=== PATIENT | female | born 1990 | race Caucasian/White ===

== ENCOUNTER 2017-01-30 08:43 | Emergency (ER) | payer MEDICAID ==
[~2017-01-30 08:43] MED LIST: AMBIEN5 MG PO; FERROUS SULFAT325 MG PO; PRENATAL COMPLE1 TAB PO
[2017-01-30 09:25] LABS: BASOPHILS 0.6 % (0-2); HEMATOCRIT 36.1 % (36.0-48.0); HEMOGLOBIN 12.1 g/dL (12-16); IMMATURE GRANULOCYTES 0.2 % (0-5); LYMPHOCYTES 31.8 % (15-50); MCH 29.4 pg (26.0-34.0); MCHC 33.5 g/dL (31.0-37.0); MCV 87.6 fL (80.0-100.0); MEAN PLATELET VOLUME 10.1 fL (7.4-10.4); MONOCYTES 5.8 % (2-11); NEUTROPHILS 58.6 % (40-80); PLATELET COUNT 232 10x3/uL (130-400); RBC 4.12 10x6/uL (4.00-5.40); RDW 13.2 % (11.5-14.5); WBC 5.3 10x3/uL (4.8-10.8)
[2017-01-30 10:04] LABS: APPEARANCE CLEAR (CLEAR); BILIRUBIN NEGATIVE (NEGATIVE); COLOR YELLOW (YELLOW); GLUCOSE NEGATIVE (NEGATIVE); KETONE NEGATIVE (NEGATIVE); LEUKOCYTE ESTERASE 2+ (NEGATIVE); NITRITE NEGATIVE (NEGATIVE); PROTEIN NEGATIVE (NEGATIVE); UROBILINOGEN NORMAL (NORMAL)
[2017-01-30 10:05] LABS: BACTERIA FEW /hpf (NONE SEEN); EPITHELIAL CELLS 0-5 /hpf (0-5); RED CELLS - URINE RARE /hpf (0-5); WHITE CELLS - URINE 0-5 /hpf (0-5)
== END 2017-01-30 12:00 | disposition home or self-care (01) ==
LOC: D.ER 08:43
PROVIDERS: Emergency Medicine
DX: R10.9 Unspecified abdominal pain (principal); R10.2 Pelvic and perineal pain

== ENCOUNTER 2017-02-01 08:46 | Emergency (ER) | payer MEDICAID ==
[2017-02-01 09:16] LABS: BASOPHILS 0.5 % (0-2); EOSINOPHILS 1.3 % (0-7); HEMATOCRIT 35.6 % (36.0-48.0); HEMOGLOBIN 12.1 g/dL (12-16); IMMATURE GRANULOCYTES 0.1 % (0-5); LYMPHOCYTES 23.3 % (15-50); MCH 29.9 pg (26.0-34.0); MCV 87.9 fL (80.0-100.0); MEAN PLATELET VOLUME 9.8 fL (7.4-10.4); MONOCYTES 5.4 % (2-11); NEUTROPHILS 69.4 % (40-80); PLATELET COUNT 227 10x3/uL (130-400); RBC 4.05 10x6/uL (4.00-5.40); RDW 12.9 % (11.5-14.5)
[2017-02-01 09:17] LABS: WBC 7.8 10x3/uL (4.8-10.8)
[2017-02-01 09:29] LABS: ALKALINE PHOSPHATASE 57 U/L (46-116); ALT (SGPT) 17 U/L (10-68); BILIRUBIN - TOTAL 0.31 mg/dL (0.2-1.3); CALC OSMOLALITY 273 mosm/kg (275-300); CALCIUM 8.3 mg/dL (8.5-10.1); CARBON DIOXIDE 26.9 mmol/L (21.0-32.0); CHLORIDE - SERUM 102 mmol/L (98-107); CREATININE - SERUM 0.7 mg/dL (0.6-1.3); POTASSIUM - SERUM 3.8 mmol/L (3.5-5.1); PROTEIN - SERUM 7.3 g/dL (6.4-8.2); SODIUM 137 mmol/L (136-145); UREA NITROGEN 15 mg/dL (7-18); eGFR NON AFRICAN AMERICAN > 90 mL/min (90-120)
[2017-02-01 09:33] LABS: GLUCOSE 79 mg/dL (74-106)
[2017-02-01 09:34] LABS: APPEARANCE HAZY (CLEAR); COLOR YELLOW (YELLOW)
[2017-02-01 09:35] LABS: BACTERIA FEW /hpf (NONE SEEN); BILIRUBIN NEGATIVE (NEGATIVE); EPITHELIAL CELLS 0-5 /hpf (0-5); GLUCOSE NEGATIVE (NEGATIVE); KETONE NEGATIVE (NEGATIVE); LEUKOCYTE ESTERASE 1+ (NEGATIVE); MUCUS <1+ /lpf (NONE SEEN); NITRITE NEGATIVE (NEGATIVE); PROTEIN NEGATIVE (NEGATIVE); UROBILINOGEN NORMAL (NORMAL); WHITE CELLS - URINE 0-5 /hpf (0-5)
[2017-02-01 09:41] LABS: SPERMATOZOA PRESENT /hpf (NONE SEEN)
[2017-02-01 09:54] LABS: HCG - QUANTITATIVE (MATERNAL) 3292 mIU/mL
== END 2017-02-01 10:50 | disposition home or self-care (01) ==
LOC: D.ER 08:46
PROVIDERS: Family Medicine
DX: O26.891 Other specified pregnancy related conditions, first trimester (principal); Z3A.00 Weeks of gestation of pregnancy not specified; R10.9 Unspecified abdominal pain; F17.200 Nicotine dependence, unspecified, uncomplicated

== ENCOUNTER → 2017-08-20 11:45 | Outpatient (CLI) | payer MEDICAID | END | disposition home or self-care (01) | LOC: D.LDO 11:45 | DX: O26.893 Other specified pregnancy related conditions, third trimester (principal); Z3A.33 33 weeks gestation of pregnancy ==

== ENCOUNTER 2017-09-03 04:06 | Outpatient (CLI) | payer MEDICAID ==
[2017-09-20 16:06] VITALS: BMI 23.2
== END 2017-09-03 06:42 | disposition home or self-care (01) ==
LOC: D.LDO 04:06
DX: O26.893 Other specified pregnancy related conditions, third trimester (principal); Z3A.35 35 weeks gestation of pregnancy; R10.2 Pelvic and perineal pain

== ENCOUNTER → 2017-09-09 05:00 | Outpatient (CLI) | payer MEDICAID ==
[~2017-09-09 05:00] MED LIST changes: +AMBIEN10 MG PO
[2017-09-20 16:06] VITALS: BMI 23.2
== END | disposition home or self-care (01) ==
LOC: D.LDO 05:00
DX: O26.893 Other specified pregnancy related conditions, third trimester (principal); Z3A.36 36 weeks gestation of pregnancy

== ENCOUNTER 2017-09-20 15:30 | Inpatient (IN) | payer MEDICAID ==
[~2017-09-20] VITALS: Ht 152.4 cm; Wt 54.0 kg
--- NOTE | ~2017-09-20 | OP ---
PATIENT NAME: BISHOP BALTAZAR MEDICAL RECORD: [id number] :89 LOCATION:[id number] ADMISSION DATE:09/20/17 SURGEON: CHU GAYTAN MD DATE OF OPERATION: 09/20/2017 DELIVERY NOTE PREDELIVERY DIAGNOSIS: Spontaneous rupture of membranes at term. POSTDELIVERY DIAGNOSIS: Mother delivered at term. PROCEDURE: Vaginal delivery ATTENDING PHYSICIAN: Chu Gaytan MD ANESTHESIA: Continuous lumbar epidural. FINDINGS: Viable male , DEENA presentation, Apgars 9 and 9, weight pending at the time of this dictation. Lacerations none. Placenta spontaneous and intact. ESTIMATED BLOOD LOSS: 300 cc. DISPOSITION: Mother and infant recovered in the room. TRANSINT:[id number] Voice Confirmation ID: [id number] DOCUMENT ID: [id number] CHU GAYTAN MD at 0721 CC: [id number] DICTATION DATE: 09/20/172113 WARP KNIT OPERATOR: 09/20/172157 DIS IN 09/22/17 [id number] [place] [address]
--- NOTE | ~2017-09-20 | DS ---
PATIENT:BISHOP BALTAZAR :89 MEDICAL RECORD: [id number] DISCHARGE SUMMARY ADMISSION DATE: 09/20/17 DISCHARGE DATE: 09/22/17 DATE OF ADMISSION: 09/20/2017 DATE OF DISCHARGE: 09/22/2017 ADMISSION DIAGNOSIS: at term. DISCHARGE DIAGNOSIS: Mother delivered at term. PROCEDURE: Vaginal delivery. ATTENDING PHYSICIAN: Alexa Mcpherson MD HISTORY OF PRESENT ILLNESS: See the H&P in the chart. SUMMARY OF HOSPITALIZATION: The patient was admitted to the hospital in active labor and went on to have a vaginal delivery. At the time of discharge, she is reporting minimal lochia. She has no complaints and a standard precautions have been reviewed with her. Contraception counseling was undertaken before the patient was discharged. Follow up in 6 weeks at [facility]. TRANSINT:[id number] Voice Confirmation ID: [id number] DOCUMENT ID: [id number] ALEXA MCPHERSON MD at 1727 CC: [id number] DICTATION DATE: 10/29/17720 ASSOCIATE DIRECTOR QA: 10/29/17 1327 DIS IN 09/22/17 [facility] [address] [place] [address]
[~2017-09-20 15:30] MED LIST changes: -AMBIEN10 MG PO
[2017-09-20] MEDS ORDERED: AMBIEN10 MG PO (16:00)
[2017-09-20 16:06] VITALS: BP 120/77; Ht 152.4 cm; Wt 54.0 kg
[2017-09-20 16:58] LABS: MCH 28.5 pg (26.0-34.0); MCHC 33.3 g/dL (31.0-37.0); MCV 85.5 fL (80.0-100.0); MEAN PLATELET VOLUME 10.6 fL (7.4-10.4); RBC 3.51 10x6/uL (4.00-5.40); RDW 13.1 % (11.5-14.5); WBC 7.8 10x3/uL (4.8-10.8)
[2017-09-21] VITALS: BP 114/55
[2017-09-21 07:45] VITALS: BP 111/70
[2017-09-21 15:30] VITALS: BP 99/62
[2017-09-21 19:10] VITALS: BP 97/62
[2017-09-21 22:10] VITALS: BP 109/72
[2017-09-22 05:14] LABS: RAPID PLASMA REAGIN Non Reactive (Non Reactive)
[2017-09-22 07:15] VITALS: BP 109/60
== END 2017-09-22 12:20 | disposition home or self-care (01) | DRG 775 ==
LOC: D.LDO 15:30 → D.LD 15:56
PROVIDERS: Obstetrics & Gynecology
PROC: 10E0XZZ Delivery of Products of Conception, External Approach (ICD-10-PCS; principal; 2017-09-20)
DX: O42.92 Full-term premature rupture of membranes, unspecified as to length of time between rupture and onset of labor (principal); Z3A.38 38 weeks gestation of pregnancy; Z37.0 Single live birth

== ENCOUNTER 2018-11-06 07:34 | Emergency (ER) | payer MEDICAID ==
[~2018-11-06] VITALS: Ht 152.4 cm; Wt 39.1 kg
[~2018-11-06 07:34] MED LIST changes: +AMBIEN10 MG PO
[2018-11-06 08:02] VITALS: Ht 152.4 cm; Wt 39.1 kg
[2018-11-06 08:03] LABS: BASOPHILS 0.6 % (0-2); EOSINOPHILS 1.2 % (0-7); HEMATOCRIT 34.9 % (36.0-48.0); HEMOGLOBIN 11.8 g/dL (12-16); IMMATURE GRANULOCYTES 0.3 % (0-5); LYMPHOCYTES 28.2 % (15-50); MCH 28.7 pg (26.0-34.0); MCHC 33.8 g/dL (31.0-37.0); MCV 84.9 fL (80.0-100.0); MEAN PLATELET VOLUME 9.9 fL (7.4-10.4); NEUTROPHILS 57.7 % (40-80); PLATELET COUNT 188 10x3/uL (130-400); RBC 4.11 10x6/uL (4.00-5.40); RDW 13.5 % (11.5-14.5); WBC 3.4 10x3/uL (4.8-10.8)
[2018-11-06 08:13] LABS: APPEARANCE HAZY (CLEAR); BILIRUBIN NEGATIVE (NEGATIVE); COLOR YELLOW (YELLOW); GLUCOSE NEGATIVE (NEGATIVE); KETONE NEGATIVE (NEGATIVE); NITRITE NEGATIVE (NEGATIVE); PROTEIN NEGATIVE (NEGATIVE); SPECIFIC GRAVITY 1.015 (1.005-1.020)
[2018-11-06 08:20] LABS: ALBUMIN 3.7 g/dL (3.4-5.0); ALKALINE PHOSPHATASE 66 U/L (46-116); ALT (SGPT) 20 U/L (10-68); AMYLASE - SERUM 43 U/L (25-115); BILIRUBIN - TOTAL 0.15 mg/dL (0.2-1.3); CALC OSMOLALITY 273 mosm/kg (275-300); CALCIUM 8.4 mg/dL (8.5-10.1); CARBON DIOXIDE 28.4 mmol/L (21.0-32.0); CHLORIDE - SERUM 104 mmol/L (98-107); CREATININE - SERUM 0.8 mg/dL (0.6-1.3); GLUCOSE 88 mg/dL (74-106); LIPASE 168 U/L (73-393); POTASSIUM - SERUM 3.7 mmol/L (3.5-5.1); PROTEIN - SERUM 7.3 g/dL (6.4-8.2); SODIUM 138 mmol/L (136-145); UREA NITROGEN 11 mg/dL (7-18); eGFR NON AFRICAN AMERICAN > 90 mL/min (90-120)
[2018-11-06 09:01] LABS: HCG URINE NEGATIVE (NEGATIVE)
[2018-11-06] MEDS ORDERED: ZOFRAN ODT4 MG/UDTAB PO (13:00)
[2018-11-06] MEDS ORDERED: FLORASTOR250 MG PO (13:00)
[2018-11-06 14:08] VITALS: BP 110/70
== END 2018-11-06 14:08 | disposition home or self-care (01) ==
LOC: D.ER 07:34
PROVIDERS: Family Medicine
DX: R11.2 Nausea with vomiting, unspecified (principal); R19.7 Diarrhea, unspecified

== ENCOUNTER 2019-03-04 16:53 | Emergency (ER) | payer MEDICAID ==
[~2019-03-04] VITALS: Ht 152.4 cm; Wt 43.2 kg
[~2019-03-04 16:53] MED LIST changes: +FLORASTOR250 MG PO; +ZOFRAN ODT4 MG/UDTAB PO
[2019-03-04 18:01] VITALS: Ht 152.4 cm; Wt 43.2 kg
[2019-03-04] MEDS ORDERED: PRENAVITE1 TAB PO (18:06)
[2019-03-04 19:15] LABS: BASOPHILS 0.3 % (0-2); HEMATOCRIT 28.9 % (36.0-48.0); HEMOGLOBIN 10.1 g/dL (12-16); IMMATURE GRANULOCYTES 0.1 % (0-5); LYMPHOCYTES 21.7 % (15-50); MCHC 34.9 g/dL (31.0-37.0); MEAN PLATELET VOLUME 10.2 fL (7.4-10.4); MONOCYTES 7.9 % (2-11); PLATELET COUNT 186 10x3/uL (130-400); RBC 3.48 10x6/uL (4.00-5.40); RDW 13.1 % (11.5-14.5); WBC 7.3 10x3/uL (4.8-10.8)
[2019-03-04 19:38] LABS: ALBUMIN 3.6 g/dL (3.4-5.0); ALKALINE PHOSPHATASE 63 U/L (46-116); ALT (SGPT) 15 U/L (10-68); BILIRUBIN - TOTAL 0.19 mg/dL (0.2-1.3); CALC OSMOLALITY 273 mosm/kg (275-300); CALCIUM 9.4 mg/dL (8.5-10.1); CARBON DIOXIDE 28.2 mmol/L (21.0-32.0); CHLORIDE - SERUM 102 mmol/L (98-107); CREATININE - SERUM 0.6 mg/dL (0.6-1.3); POTASSIUM - SERUM 4.1 mmol/L (3.5-5.1); PROTEIN - SERUM 7.2 g/dL (6.4-8.2); SODIUM 138 mmol/L (136-145); UREA NITROGEN 13 mg/dL (7-18); eGFR NON AFRICAN AMERICAN > 90 mL/min (90-120)
[2019-03-04 19:40] LABS: GLUCOSE 62 mg/dL (74-106)
[2019-03-04 19:58] LABS: APPEARANCE CLEAR (CLEAR); BILIRUBIN NEGATIVE (NEGATIVE); COLOR YELLOW (YELLOW); GLUCOSE NEGATIVE (NEGATIVE); KETONE NEGATIVE (NEGATIVE); NITRITE NEGATIVE (NEGATIVE); PROTEIN NEGATIVE (NEGATIVE); UROBILINOGEN NORMAL (NORMAL)
[2019-03-04 20:05] LABS: AMYLASE - SERUM 79 U/L (25-115); HCG - QUANTITATIVE (MATERNAL) 65785 mIU/mL; LIPASE 238 U/L (73-393)
[2019-03-04 20:06] LABS: TROPONIN-I < 0.017 ng/mL (0.000-0.060)
[2019-03-04 22:05] VITALS: BP 96/60
== END 2019-03-04 22:05 | disposition home or self-care (01) ==
LOC: D.ER 16:53
PROVIDERS: Family Medicine
DX: O26.892 Other specified pregnancy related conditions, second trimester (principal); Z3A.15 15 weeks gestation of pregnancy; K59.00 Constipation, unspecified

== ENCOUNTER 2019-05-06 08:43 | Emergency (ER) | payer MEDICAID ==
[~2019-05-06] VITALS: Ht 152.4 cm; Wt 54.5 kg
[~2019-05-06 08:43] MED LIST changes: +PRENAVITE1 TAB PO
[2019-05-06 08:50] VITALS: Ht 152.4 cm; Wt 54.5 kg
[2019-05-06 10:34] VITALS: BP 107/63
== END 2019-05-06 10:35 | disposition home or self-care (01) ==
LOC: D.ER 08:43
DX: O26.892 Other specified pregnancy related conditions, second trimester (principal); Z3A.24 24 weeks gestation of pregnancy; R51 Headache

== ENCOUNTER → 2019-06-18 10:08 | Outpatient (CLI) | payer MEDICAID ==
[2019-05-06 08:50] VITALS: BMI 23.4
[~2019-06-18 10:08] MED LIST changes: +BUTALB-APAP-CA1 EACH PO
== END | disposition home or self-care (01) ==
LOC: D.LDO 10:08
PROVIDERS: ATTEND Obstetrics & Gynecology
DX: Z34.90 Encounter for supervision of normal pregnancy, unspecified, unspecified trimester (principal); Z3A.00 Weeks of gestation of pregnancy not specified

== ENCOUNTER → 2019-06-26 19:56 | Outpatient (CLI) | payer MEDICAID ==
[2019-05-06 08:50] VITALS: BMI 23.4
[2019-06-26 20:34] VITALS: BP 99/55
== END | disposition home or self-care (01) ==
LOC: D.LDO 19:56
PROVIDERS: ATTEND Student in an Organized Health Care Education/Training Program
DX: O26.899 Other specified pregnancy related conditions, unspecified trimester (principal); D64.9 Anemia, unspecified

== ENCOUNTER → 2019-07-04 09:46 | Outpatient (CLI) | payer MEDICAID ==
[2019-05-06 08:50] VITALS: BMI 23.4
== END | disposition home or self-care (01) ==
LOC: D.LDO 09:46
PROVIDERS: ATTEND Student in an Organized Health Care Education/Training Program
DX: O26.893 Other specified pregnancy related conditions, third trimester (principal); Z3A.32 32 weeks gestation of pregnancy

== ENCOUNTER 2019-07-23 19:50 | Outpatient (CLI) | payer MEDICAID ==
[2019-05-06 08:50] VITALS: BMI 23.4
== END 2019-07-23 23:05 | disposition home or self-care (01) ==
LOC: D.LDO 19:50
PROVIDERS: ATTEND Obstetrics & Gynecology
DX: O26.899 Other specified pregnancy related conditions, unspecified trimester (principal); Z3A.00 Weeks of gestation of pregnancy not specified

== ENCOUNTER → 2019-09-30 11:11 | Outpatient (CLI) | payer OTHER | END | disposition home or self-care (01) | LOC: D.US 11:11 | PROVIDERS: ATTEND Student in an Organized Health Care Education/Training Program | DX: M79.601 Pain in right arm (principal) ==

== ENCOUNTER 2019-11-24 13:25 | Emergency (ER) | payer OTHER ==
[~2019-11-24] VITALS: Ht 152.4 cm; Wt 45.5 kg
[2019-11-24 14:05] VITALS: Ht 152.4 cm; Wt 45.5 kg
[2019-11-24] MEDS ORDERED: LOVENOX40 MG/0.4 SC (14:06)
[2019-11-24 15:43] VITALS: BP 163/88
== END 2019-11-24 15:45 | disposition home or self-care (01) ==
LOC: D.ER 13:25
DX: R20.2 Paresthesia of skin (principal); Z86.718 Personal history of other venous thrombosis and embolism

== ENCOUNTER → 2019-12-02 11:34 | Outpatient (CLI) | payer OTHER ==
[2019-11-24 14:05] VITALS: BMI 19.5
[~2019-12-02 11:34] MED LIST changes: +LOVENOX40 MG/0.4 SC
== END | disposition home or self-care (01) ==
LOC: D.US 11:30
PROVIDERS: ATTEND Internal Medicine Hematology & Oncology
DX: O87.1 Deep phlebothrombosis in the puerperium (principal); Z86.718 Personal history of other venous thrombosis and embolism; Z79.01 Long term (current) use of anticoagulants; N63.10 Unspecified lump in the right breast, unspecified quadrant